=== PATIENT | female | born 1975 | race Caucasian/White ===

== ENCOUNTER 2018-03-30 19:18 | Emergency (ER) | payer SELFPAY ==
[2018-03-30] MEDS ORDERED: BUPIVACAINE 0.5% PF 10 ML VIAL ONE (20:17)
--- NOTE | 2018-03-30 21:27 | EDPHYS ---
Physician Documentation [facility] Name: Juliet Rodgers Age: 43 yrs Sex: Female : 1975 Arrival Date: 03/30/2018 Time: 19:32 Bed 13 Private MD: ED Physician Monroe Lake HPI: 03/30 20:12 This 43 yrs old Female presents to ER via Ambulatory with complaints of Toe jmm Injury. 20:12 The patient presents with an injury, pain, that is acute. Onset: The symptoms/episode jmm began/occurred acutely, just prior to arrival. Patient states a door pulled her left great toenail back just prior to arrival. . 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 - Social history:: Smoking status: Patient uses tobacco products, smokes one-half pack cigarettes per day. - Ebola Screening: : Patient negative for fever greater than or equal to 101.5 degrees Fahrenheit, and additional compatible Ebola Virus Disease symptoms Patient denies exposure to infectious person Patient denies travel to an Ebola-affected area in the 21 days before illness onset No symptoms or risks identified at this time. ROS: 20:12 Constitutional: Negative for fever, chills, and weight loss, Cardiovascular: Negative jmm for chest pain, palpitations, and edema, Respiratory: Negative for shortness of breath, cough, wheezing, and pleuritic chest pain. Exam: 03/31 02:36 Head/Face: atraumatic. jmm Constitutional: The patient appears in no acute distress, alert, awake. Cardiovascular: Rate: normal. Respiratory: the patient does not display signs of respiratory distress, Respirations: normal. Musculoskeletal/extremity: toenail avulsion noted to the left great toe. Skin: Appearance: Color: normal in color. Neuro: Orientation: is normal, Mentation: is normal, Memory: is normal. Psych: Behavior/mood is pleasant, cooperative. Vital Signs: 03/30 19:47 BP 127 / 89; Pulse 104; Resp 20; Temp 98.8; Pulse Ox 98% on R/A; Weight 54.43 kg; aj Height 5 ft. 4 in. (162.56 cm); 20:47 BP 137 / 84; Pulse 81; Resp 16; Pulse Ox 99% on R/A; bs1 21:15 BP 116 / 73; Pulse 86; Resp 16; Temp 98(O); Pulse Ox 100% on R/A; Pain 0/10; bs1 19:47 Body Mass Index 20.60 (54.43 kg, 162.56 cm) MDM: 20:10 Patient medically screened. [facility] 20:12 Data reviewed: vital signs, nurses notes. [facility] 20:12 Differential diagnosis: toenail avulsion. Special discussion: I have referred the [facility] patient to see his PCP for further evaluation of high blood pressure. ED course: No bony tenderness, I do not suspect fracture. Administered Medications: 20:28 Drug: Marcaine (0.5 %) 10 ml {Note: Administered by PA. Eligio} Volume: 10 ml; Route: bs1 Infiltration; Disposition: 03/31 06:35 Co-signature as Attending Physician, Monroe Lake MD I agree with the assessment and alfonzo plan of care. Disposition: 03/30/18 21:26 Discharged to Home. Impression: Unspecified open wound of left great toe with damage to nail. - Condition is Stable. - Discharge Instructions: Nail Bed Injury. - Medication Reconciliation Form, Thank You Letter, Antibiotic Education, Prescription Opioid Use form. - Follow up: Ar Butt MD; When: As needed; Reason: Recheck today's complaints. - Notes: please follow up with your primary care provider for further evaluation of your toe nail. please return to the ed if you develop fever, increased pain or any other concerning symptoms. Signatures: Latoya Dunn, Monroe Merida RN, MD MD cha Mickail, Joel, PA PA jmm Salazar, Brittany RN RN bs1 Corrections: (The following items were deleted from the chart) 03/30 21:37 21:26 03/30/2018 21:26 Discharged to Home. Impression: Unspecified open wound of left bs1 great toe with damage to nail. Condition is Stable. Forms are Medication Reconciliation Form, Thank You Letter, Antibiotic Education, Prescription Opioid Use. Follow up: Ar Filomena; When: As needed; Reason: Recheck today's complaints. thomas 03/31 02:37 02:36 Constitutional: The patient appears in no acute distress, alert, awake, thomas guzman
--- NOTE | 2018-03-30 21:27 | ER ---
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 Laceration to left great toe, reports nail lifted up. Transition of care: patient was not received from another setting of care. Onset of symptoms was March 30, 2018. Risk Assessment: Do you want to hurt yourself or someone else? Patient reports no desire to harm self or others. Care prior to arrival: None. 19:45 Method Of Arrival: Ambulatory aj 19:45 Acuity: ELI 4 aj 21:36 Initial Sepsis Screen: Does the patient meet any 2 criteria? No. Patient's initial bs1 sepsis screen is negative. Does the patient have a suspected source of infection? No. Patient's initial sepsis screen is negative. Triage Assessment: 19:47 General: Appears in no apparent distress. comfortable, Behavior is calm, cooperative, aj appropriate for age. Pain: Complains of pain in Left first toenail. Neuro: Level of Consciousness is awake, alert, obeys commands, Oriented to person, place, time, situation, Appropriate for age. Respiratory: Airway is patent Respiratory effort is even, unlabored, Respiratory pattern is regular, symmetrical. Derm: Skin is intact, is healthy with good turgor, Skin is pink, warm \T\ dry. normal. Injury Description: Laceration sustained to Left first toenail. 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 - Social history:: Smoking status: Patient uses tobacco products, smokes one-half pack cigarettes per day. - Ebola Screening: : Patient negative for fever greater than or equal to 101.5 degrees Fahrenheit, and additional compatible Ebola Virus Disease symptoms Patient denies exposure to infectious person Patient denies travel to an Ebola-affected area in the 21 days before illness onset No symptoms or risks identified at this time. Screenin:05 Abuse screen: Denies threats or abuse. Denies injuries from another. Nutritional bp screening: No deficits noted. Tuberculosis screening: No symptoms or risk factors identified. Fall Risk None identified. Assessment: 20:00 General: Appears in no apparent distress. comfortable, slender, Behavior is calm, rv cooperative, appropriate for age. Pain: Complains of pain in left first toe and Left first toenail. Neuro: Level of Consciousness is awake, alert, obeys commands, Oriented to person, place, time, situation, Appropriate for age. Cardiovascular: No deficits noted. Respiratory: Airway is patent Respiratory effort is even, unlabored, Respiratory pattern is regular, symmetrical. GI: No signs and/or symptoms were reported involving the gastrointestinal system. : No signs and/or symptoms were reported regarding the genitourinary system. EENT: No deficits noted. Derm: No deficits noted. Musculoskeletal: Circulation, motion, and sensation intact. Range of motion: intact in all extremities. Injury Description: Laceration sustained to left first toe and Left first toenail is not bleeding, NAIL AVULSION. 21:00 Reassessment: Patient appears in no apparent distress at this time. No changes from bs1 previously documented assessment. Patient is alert, oriented x 3, equal unlabored respirations, skin warm/dry/pink. 21:15 Reassessment: Dressed patients left big toe with Koban per verbal order from PA Patient bs1 denies pain at this time. Vital Signs: 19:47 BP 127 / 89; Pulse 104; Resp 20; Temp 98.8; Pulse Ox 98% on R/A; Weight 54.43 kg; aj Height 5 ft. 4 in. (162.56 cm); 20:47 BP 137 / 84; Pulse 81; Resp 16; Pulse Ox 99% on R/A; bs1 21:15 BP 116 / 73; Pulse 86; Resp 16; Temp 98(O); Pulse Ox 100% on R/A; Pain 0/10; bs1 19:47 Body Mass Index 20.60 (54.43 kg, 162.56 cm) aj ED Course: 19:32 Patient arrived in ED. es 19:47 Triage completed. aj 19:47 Arm band placed on left wrist. Patient placed in an exam room. aj 19:49 Eligio Espitia PA is PHCP. [facility] 19:49 Monroe Lake MD is Attending Physician. [facility] 20:05 Patient has correct armband on for positive identification. Bed in low position. Call bp light in reach. Adult w/ patient. 20:17 Elinor Calvillo, RN is Primary Nurse. bs1 21:21 Ar Butt MD is Referral Physician. jmm 21:36 No provider procedures requiring assistance completed. Patient did not have IV access bs1 during this emergency room visit. Administered Medications: 20:28 Drug: Marcaine (0.5 %) 10 ml {Note: Administered by BRAYDON Del Valle.} Volume: 10 ml; Route: bs1 Infiltration; Outcome: 21:26 Discharge ordered by . [facility] 21:36 Discharged to home ambulatory, with family. bs1 21:36 Condition: stable 21:36 Discharge instructions given to patient, Instructed on discharge instructions, follow up and referral plans. Demonstrated understanding of instructions, follow-up care. 21:37 Patient left the ED. bs1 Signatures: Latoya Dunn, RN RN Eligio Gr PA PA [facility] Marylin Fong Brian RN Elinor Graf, RN RN bs1 Roly Cage, RN RN rv
== END 2018-03-30 21:37 | disposition home or self-care (01) ==
LOC: ER 19:18
DX: S91.202A Unspecified open wound of left great toe with damage to nail, initial encounter (principal); W22.09XA Striking against other stationary object, initial encounter; Y93.89 Activity, other specified; Y92.009 Unspecified place in unspecified non-institutional (private) residence as the place of occurrence of the external cause; F17.210 Nicotine dependence, cigarettes, uncomplicated
CPT/HCPCS: 99283

== ENCOUNTER 2018-06-05 15:31 | Emergency (ER) | payer SELFPAY ==
--- NOTE | 2018-06-05 15:54 | ER ---
Nurse's Notes [facility] Name: Juliet Rodgers Age: 43 yrs Sex: Female : 1975 Arrival Date: 06/05/2018 Time: 15:34 Bed 11 Private MD: None, None Diagnosis: Unspecified otitis externa, left ear Presentation: 06/05 15:50 Presenting complaint: Patient states: "I can't hear out of my left ear and my right ear jl7 is starting to hurt. Transition of care: patient was not received from another setting of care. Risk Assessment: Do you want to hurt yourself or someone else? Patient reports no desire to harm self or others. Initial Sepsis Screen: Does the patient meet any 2 criteria? No. Patient's initial sepsis screen is negative. Does the patient have a suspected source of infection? No. Patient's initial sepsis screen is negative. Care prior to arrival: None. 15:50 Method Of Arrival: Ambulatory [facility] 15:50 Acuity: ELI 4 jl7 15:50 Onset of symptoms was June 05, 2018. iw 15:50 Onset of symptoms was June 05, 2018. iw Triage Assessment: 15:55 General: Appears in no apparent distress. Behavior is calm. 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 - Social history:: Smoking status: Patient uses tobacco products, smokes one-half pack cigarettes per day. - Ebola Screening: : No symptoms or risks identified at this time. Screenin:55 Abuse screen: Denies threats or abuse. Denies injuries from another. Nutritional iw screening: No deficits noted. Tuberculosis screening: No symptoms or risk factors identified. Fall Risk None identified. Assessment: 15:55 General: Appears in no apparent distress. Pain: Complains of pain in left ear and right iw ear. Neuro: Level of Consciousness is awake, alert, obeys commands, Oriented to person, place, time, situation, Moves all extremities. Full function. Cardiovascular: Patient's skin is warm and dry. Respiratory: Respiratory effort is even, unlabored, Respiratory pattern is regular, symmetrical. EENT: Reports pain. Derm: Skin is pink, warm \\T\\ dry. normal. Vital Signs: 15:53 BP 129 / 96; Pulse 99; Resp 16 S; Temp 98.5(O); Pulse Ox 100% on R/A; Pain 2/10; jl7 ED Course: 15:34 Patient arrived in ED. sb2 15:34 None, None is Private Physician. sb2 15:52 Triage completed. jl7 15:53 Mary [facility] Kerr [facility] kb 15:53 Monroe Lake MD is Attending Physician. kb 15:53 Arm band placed on right wrist. jl7 15:55 Patient has correct armband on for positive identification. iw 15:59 Seble Hloden, RN is Primary Nurse. iw 15:59 No provider procedures requiring assistance completed. Patient did not have IV access iw during this emergency room visit. Administered Medications: No medications were administered Outcome: 15:54 Discharge ordered by MD. kb 15:59 Discharged to home ambulatory. iw 15:59 Condition: good 15:59 Discharge instructions given to patient, Instructed on discharge instructions, follow up and referral plans. medication usage, Demonstrated understanding of instructions, follow-up care, medications, Prescriptions given X 1. 15:59 Patient left the ED. iw Signatures: Mary Jane Kerr FNP-C FNP-Ckb Williams, Irene, RN RN iw Brian Becerra RN RN jl7 Adriane Pinzon sb2
--- NOTE | 2018-06-05 15:55 | EDPHYS ---
Physician Documentation [facility] Name: Juliet Rodgers Age: 43 yrs Sex: Female : 1975 Arrival Date: 06/05/2018 Time: 15:34 Bed 11 Private MD: None, None ED Physician Monroe Lake HPI: 06/05 16:06 This 43 yrs old Female presents to ER via Ambulatory with complaints of Ear kb Pain. 16:06 The patient presents with hearing loss, partial, pain, mild. The complaints affect the kb right ear and left ear. Onset: The symptoms/episode began/occurred 2 month(s) ago. Modifying factors: The symptoms are alleviated by nothing, the symptoms are aggravated by nothing. Associated signs and symptoms: The patient has no apparent associated signs or symptoms. Severity of symptoms: At their worst the symptoms were moderate in the emergency department the symptoms are unchanged. The patient has not experienced similar symptoms in the past. The patient has not recently seen a physician. Pt reports hearing loss in left ear for 2 months and right ear is beginning to hurt. States she has taken a course of amoxicillin without relief. . 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 - Social history:: Smoking status: Patient uses tobacco products, smokes one-half pack cigarettes per day. - Ebola Screening: : No symptoms or risks identified at this time. ROS: 16:05 Constitutional: Negative for fever, chills, and weight loss, Cardiovascular: Negative kb for chest pain, palpitations, and edema, Respiratory: Negative for shortness of breath, cough, wheezing, and pleuritic chest pain, Abdomen/GI: Negative for abdominal pain, nausea, vomiting, diarrhea, and constipation, Back: Negative for injury and pain, : Negative for injury, bleeding, discharge, and swelling, MS/Extremity: Negative for injury and deformity, Skin: Negative for injury, rash, and discoloration, Neuro: Negative for headache, weakness, numbness, tingling, and seizure. 16:05 ENT: Positive for ear pain, hearing loss. Exam: 16:05 Constitutional: This is a well developed, well nourished patient who is awake, alert, kb and in no acute distress. Head/Face: Normocephalic, atraumatic. Chest/axilla: Normal chest wall appearance and motion. Nontender with no deformity. No lesions are appreciated. Cardiovascular: Regular rate and rhythm with a normal S1 and S2. No gallops, murmurs, or rubs. Normal PMI, no JVD. No pulse deficits. Respiratory: Lungs have equal breath sounds bilaterally, clear to auscultation and percussion. No rales, rhonchi or wheezes noted. No increased work of breathing, no retractions or nasal flaring. Abdomen/GI: Soft, non-tender, with normal bowel sounds. No distension or tympany. No guarding or rebound. No evidence of tenderness throughout. Skin: Warm, dry with normal turgor. Normal color with no rashes, no lesions, and no evidence of cellulitis. MS/ Extremity: Pulses equal, no cyanosis. Neurovascular intact. Full, normal range of motion. Neuro: Awake and alert, GCS 15, oriented to person, place, time, and situation. Cranial nerves II-XII grossly intact. Motor strength 5/5 in all extremities. Sensory grossly intact. Cerebellar exam normal. Normal gait. 16:05 ENT: External ear(s): are unremarkable, Ear canal(s): purulent discharge, that is moderate, in the left canal, swelling, that is minimal, that is moderate, of the left canal, TM's: fluid levels, on the right, not visable, because of discharge, left ear, Nose: is normal, Mouth: is normal. Vital Signs: 15:53 BP 129 / 96; Pulse 99; Resp 16 S; Temp 98.5(O); Pulse Ox 100% on R/A; Pain 2/10; jl7 MDM: 15:53 Patient medically screened. kb 16:05 Data reviewed: vital signs, nurses notes. Data interpreted: Pulse oximetry: on room air kb is 100 %. Interpretation: normal. Counseling: I had a detailed discussion with the patient and/or guardian regarding: the historical points, exam findings, and any diagnostic results supporting the discharge/admit diagnosis, the need for outpatient follow up, an ENT specialist, to return to the emergency department if symptoms worsen or persist or if there are any questions or concerns that arise at home. Administered Medications: No medications were administered Disposition: 06/06 11:34 Co-signature as Attending Physician, Monroe Laek MD I agree with the assessment and alfonzo plan of care. Disposition: 06/05/18 15:54 Discharged to Home. Impression: Unspecified otitis externa, left ear. - Condition is Stable. - Discharge Instructions: Otitis Externa, [id number], Ear Drops, Adult, [id number]. - Prescriptions for Cortisporin 3.5- 10,000-1 mg/mL-unit/mL-% Otic solution - instill 4 drop by OTIC route every 6 hours for 10 days; 1 bottle. - Medication Reconciliation Form, Thank You Letter, Antibiotic Education, Prescription Opioid Use form. - Follow up: Private Physician; When: 2 - 3 days; Reason: Recheck today's complaints, Continuance of care, Re-evaluation by your physician. Follow up: Emergency Department; When: As needed; Reason: Worsening of condition. Signatures: Mary Jane Kerr, SUPERVISOR MACHINE SETTER-C LEON-Monroe Hale MD MD cha Williams, Irene, RN RN iw Brian Becerra RN RN jl7 Corrections: (The following items were deleted from the chart) 06/05 15:59 15:54 06/05/2018 15:54 Discharged to Home. Impression: Unspecified otitis externa, left iw ear. Condition is Stable. Forms are Medication Reconciliation Form, Thank You Letter, Antibiotic Education, Prescription Opioid Use. Follow up: Private Physician; When: 2 - 3 days; Reason: Recheck today's complaints, Continuance of care, Re-evaluation by your physician. Follow up: Emergency Department; When: As needed; Reason: Worsening of condition. kb
== END 2018-06-05 15:59 | disposition home or self-care (01) ==
LOC: ER 15:31
DX: H60.92 Unspecified otitis externa, left ear (principal); F17.210 Nicotine dependence, cigarettes, uncomplicated
CPT/HCPCS: 99282

== ENCOUNTER 2018-07-28 09:58 | Emergency (ER) | payer SELFPAY ==
--- NOTE | 2018-07-28 10:30 | ER ---
Nurse's Notes [facility] Name: Juliet Rodgers Age: 43 yrs Sex: Female : 1975 Arrival Date: 07/28/2018 Time: 10:03 Bed 11 Private MD: Diagnosis: Acute serous otitis media Presentation: 07/28 10:08 Presenting complaint: Patient states: She was seen here 2 weeks ago for an infection in aj1 her ear, she used the ear drops and it got better but now its back again. Reports that she can't hear out of her right ear. Transition of care: patient was not received from another setting of care. Onset of symptoms was May 2018. Risk Assessment: Do you want to hurt yourself or someone else? Patient reports no desire to harm self or others. Initial Sepsis Screen: Does the patient meet any 2 criteria? HR > 90 bpm. Does the patient have a suspected source of infection? No. Patient's initial sepsis screen is negative. Care prior to arrival: None. 10:08 Method Of Arrival: Ambulatory [facility] 10:08 Acuity: ELI 4 aj1 Triage Assessment: 10:09 General: Appears in no apparent distress. comfortable, Behavior is calm, cooperative, aj1 appropriate for age. Pain: Denies pain. EENT: Reports trouble hearing in her right ear. Neuro: Level of Consciousness is awake, alert, obeys commands. Cardiovascular: Patient's skin is warm and dry. Respiratory: Airway is patent Respiratory effort is even, unlabored, Respiratory pattern is regular, symmetrical. 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 - Social history:: Smoking status: Patient uses tobacco products, smokes one-half pack cigarettes per day. - Ebola Screening: : Patient denies travel to an Ebola-affected area in the 21 days before illness onset. Screenin:11 Abuse screen: Denies threats or abuse. Denies injuries from another. Nutritional hb screening: No deficits noted. Tuberculosis screening: No symptoms or risk factors identified. Fall Risk None identified. Assessment: 10:15 General: Appears in no apparent distress. Behavior is calm, cooperative. Pain: Pain hb currently is 0 out of 10 on a pain scale. Neuro: Level of Consciousness is awake, alert, obeys commands, Oriented to person, place, time, situation. Cardiovascular: Capillary refill < 3 seconds. Respiratory: Airway is patent Trachea midline Respiratory effort is even, unlabored, Respiratory pattern is regular, symmetrical. GI: No signs and/or symptoms were reported involving the gastrointestinal system. : No signs and/or symptoms were reported regarding the genitourinary system. EENT: Reports decreased hearing in right ear. Derm: Skin is pink, warm \T\ dry. Musculoskeletal: No signs and/or symptoms reported regarding the musculoskeletal system. Vital Signs: 10:09 BP 135 / 93; Pulse 92; Resp 18; Temp 98.0(TE); Pulse Ox 99% on R/A; Weight 58.97 kg aj1 (R); Height 5 ft. 4 in. (162.56 cm) (R); Pain 0/10; 10:09 Body Mass Index 22.31 (58.97 kg, 162.56 cm) [facility] ED Course: 10:03 Patient arrived in ED. as 10:09 Triage completed. aj1 10:09 Arm band placed on Patient placed in an exam room. aj1 10:11 Eligio Espitia PA is PHCP. [facility] 10:11 Cristian Knowles MD is Attending Physician. [facility] 10:11 Iris Rolon, JODY is Primary Nurse. hb 10:15 Patient has correct armband on for positive identification. Call light in reach. hb 10:29 Ynes Weston MD is Referral Physician. [facility] 10:42 No provider procedures requiring assistance completed. Patient did not have IV access hb during this emergency room visit. Administered Medications: No medications were administered Outcome: 10:29 Discharge ordered by . [facility] 10:42 Discharged to home ambulatory. hb 10:42 Condition: stable 10:42 Discharge instructions given to patient, Instructed on discharge instructions, follow up and referral plans. medication usage, Demonstrated understanding of instructions, follow-up care, medications, Prescriptions given X 2. 10:43 Patient left the ED. hb Signatures: Carmelita Lester RN RN aj Eligio Espitia PA PA jmm Martinez, Amelia as Iris Rolon RN RN
--- NOTE | 2018-07-28 10:30 | EDPHYS ---
Physician Documentation [facility] Name: Juliet Rodgers Age: 43 yrs Sex: Female : 1975 Arrival Date: 07/28/2018 Time: 10:03 Bed 11 Private MD: ED Physician Cristian Knowles HPI: 07/28 10:25 This 43 yrs old Female presents to ER via Ambulatory with complaints of Ear jmm Pain. 10:25 The patient presents with pain, that is chronic. Onset: The symptoms/episode jmm began/occurred gradually, 2 week(s) ago. Modifying factors: The symptoms are alleviated by nothing, the symptoms are aggravated by nothing. Associated signs and symptoms: Pertinent negatives: cough, fever, vomiting. Patient complains of ongoing bilaterally ear pain more so on the right for the past 6 months. Patient states she was diagnosed with an external ear infection with relief with topical antibiotics. Patient states symptoms returned 2 weeks ago. . 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 - Social history:: Smoking status: Patient uses tobacco products, smokes one-half pack cigarettes per day. - Ebola Screening: : Patient denies travel to an Ebola-affected area in the 21 days before illness onset. ROS: 10:25 Constitutional: Negative for fever, chills, and weight loss. jmm 10:25 Cardiovascular: Negative for chest pain, palpitations, and edema, Respiratory: Negative for shortness of breath, cough, wheezing, and pleuritic chest pain, MS/Extremity: Negative for injury and deformity, Skin: Negative for injury, rash, and discoloration, Neuro: Negative for headache, weakness, numbness, tingling, and seizure. 10:25 ENT: Positive for ear pain. 10:25 All other systems are negative. Exam: 10:25 Head/Face: atraumatic. jmm 10:25 Neck: Trachea midline, Supple Chest/axilla: Normal chest wall appearance and motion. Cardiovascular: Regular rate and rhythm. No edema appreciated Respiratory: Normal respirations, no respiratory distress appreciated Abdomen/GI: Non distended, soft Back: Normal ROM Skin: General appearance color normal MS/ Extremity: Moves all extremities, no obvious deformities appreciated, no edema noted to the lower extremities Neuro: Awake and alert, normal gait Psych: Behavior is normal, Mood is normal, Patient is cooperative and pleasant 10:25 Constitutional: The patient appears in no acute distress, alert, awake. 10:25 ENT: Ear canal(s): are normal, TM's: erythema, that is moderate, on the right. Vital Signs: 10:09 BP 135 / 93; Pulse 92; Resp 18; Temp 98.0(TE); Pulse Ox 99% on R/A; Weight 58.97 kg aj1 (R); Height 5 ft. 4 in. (162.56 cm) (R); Pain 0/10; 10:09 Body Mass Index 22.31 (58.97 kg, 162.56 cm) aj1 MDM: 10:25 Patient medically screened. [facility] 10:25 Data reviewed: vital signs, nurses notes. Counseling: I had a detailed discussion with [facility] the patient and/or guardian regarding: the historical points, exam findings, and any diagnostic results supporting the discharge/admit diagnosis, the need for outpatient follow up, to return to the emergency department if symptoms worsen or persist or if there are any questions or concerns that arise at home. 10:25 Counseling: I had a detailed discussion with the patient and/or guardian regarding: the [facility] presence of at least one elevated blood pressure reading (>120/80) during this emergency department visit. Administered Medications: No medications were administered Disposition: 11:04 Co-signature as Attending Physician, Cristian Knowles MD. rn Disposition: 07/28/18 10:29 Discharged to Home. Impression: Acute serous otitis media. - Condition is Stable. - Discharge Instructions: Otitis Media, Adult. - Prescriptions for Augmentin 875- 125 mg Oral Tablet - take 1 tablet by ORAL route every 12 hours for 10 days; 20 tablet. Fluconazole 150 mg Oral Tablet - take 1 tablet by ORAL route once daily; 1 tablet. - Medication Reconciliation Form, Thank You Letter, Antibiotic Education, Prescription Opioid Use form. - Follow up: Ynes Weston MD; When: 2 - 3 days; Reason: Recheck today's complaints, Continuance of care, Re-evaluation by your physician. Signatures: Carmelita Lester RN RN aj1 Eligio Espitia PA PA jmm Nieto, Roman, MD MD rn Baxter, Heather, RN RN hb Corrections: (The following items were deleted from the chart) 10:43 10:29 07/28/2018 10:29 Discharged to Home. Impression: Acute serous otitis media. hb Condition is Stable. Forms are Medication Reconciliation Form, Thank You Letter, Antibiotic Education, Prescription Opioid Use. Follow up: Ynes Weston; When: 2 - 3 days; Reason: Recheck today's complaints, Continuance of care, Re-evaluation by your physician. thomas
== END 2018-07-28 10:43 | disposition home or self-care (01) ==
LOC: ER 09:58
DX: H65.00 Acute serous otitis media, unspecified ear (principal); F17.210 Nicotine dependence, cigarettes, uncomplicated
CPT/HCPCS: 99282

== ENCOUNTER 2018-08-09 10:49 | Emergency (ER) | payer SELFPAY ==
--- NOTE | 2018-08-09 11:27 | ER ---
Nurse's Notes [facility] Name: Juliet Rodgers Age: 43 yrs Sex: Female : 1975 Arrival Date: 08/09/2018 Time: 10:52 Bed 5 Private MD: None, None Diagnosis: Otitis media, unspecified, right ear Presentation: 08/09 11:05 Presenting complaint: Patient states: Congestion to bilateral ears for 2 months. Seen aj in this ER twice for same complaint. Has not followed up. Transition of care: patient was not received from another setting of care. Onset of symptoms was June 10, 2018. Risk Assessment: Do you want to hurt yourself or someone else? Patient reports no desire to harm self or others. Initial Sepsis Screen: Does the patient meet any 2 criteria? No. Patient's initial sepsis screen is negative. Does the patient have a suspected source of infection? No. Patient's initial sepsis screen is negative. Care prior to arrival: None. 11:05 Method Of Arrival: Ambulatory aj 11:05 Acuity: ELI 4 aj Triage Assessment: 11:07 General: Appears in no apparent distress. comfortable, Behavior is calm, cooperative, aj appropriate for age. Pain: Complains of pain in right ear and left ear. EENT: Reports ear congestion. Neuro: Level of Consciousness is awake, alert, obeys commands, Oriented to person, place, time, situation, Appropriate for age. Respiratory: Airway is patent Respiratory effort is even, unlabored, Respiratory pattern is regular, symmetrical. Derm: Skin is intact, is healthy with good turgor, Skin is pink, warm \T\ dry. normal. 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 - Social history:: Smoking status: Patient uses tobacco products, smokes one pack cigarettes per day. - Ebola Screening: : Patient negative for fever greater than or equal to 101.5 degrees Fahrenheit, and additional compatible Ebola Virus Disease symptoms Patient denies exposure to infectious person Patient denies travel to an Ebola-affected area in the 21 days before illness onset No symptoms or risks identified at this time. Screenin:31 Abuse screen: Denies threats or abuse. Denies injuries from another. Nutritional jl7 screening: No deficits noted. Tuberculosis screening: No symptoms or risk factors identified. Fall Risk None identified. Assessment: 11:31 General: Appears in no apparent distress. uncomfortable, Behavior is calm, cooperative, jl7 appropriate for age. Pain: Denies pain. Neuro: Level of Consciousness is awake, alert, obeys commands, Oriented to person, place, time, situation. Cardiovascular: Patient's skin is warm and dry. Respiratory: Airway is patent Respiratory effort is even, unlabored, Respiratory pattern is regular, symmetrical. EENT: purulent drainage noted at right ear. Derm: Skin is pink, warm \T\ dry. 11:44 Reassessment: PT D/C HOME AMBULATORY, DX WITH OTITIS MEDIA. bp Vital Signs: 11:07 BP 122 / 77; Pulse 93; Resp 18; Temp 97.7; Pulse Ox 100% on R/A; Weight 77.11 kg; aj Height 5 ft. 4 in. (162.56 cm); 11:40 BP 122 / 89; Pulse 87; Resp 16; Pulse Ox 100% ; bp 11:07 Body Mass Index 29.18 (77.11 kg, 162.56 cm) aj ED Course: 10:52 Patient arrived in ED. mr 10:53 None, None is Private Physician. mr 11:06 Triage completed. aj 11:07 Arm band placed on right wrist. Patient placed in an exam room. aj 11:09 Eulogio Harding, CHELSI is PHCP. pm1 11:09 Cristian Knowles MD is Attending Physician. pm1 11:11 Brian Becerra, JODY is Primary Nurse. jl7 11:26 Ynes Weston MD is Referral Physician. pm1 11:31 Patient has correct armband on for positive identification. Bed in low position. Call jl7 light in reach. Side rails up X 1. Pulse ox on. NIBP on. 11:31 No provider procedures requiring assistance completed. Patient did not have IV access jl7 during this emergency room visit. Administered Medications: 11:30 Drug: SOLU-Medrol 125 mg Route: IM; Site: right gluteus; jl7 11:39 Follow up: Response: No adverse reaction bp Outcome: 11:27 Discharge ordered by . pm1 11:45 Discharged to home ambulatory. bp 11:45 Condition: stable 11:45 Discharge instructions given to patient, Instructed on discharge instructions, follow up and referral plans. medication usage, Demonstrated understanding of instructions, follow-up care, medications, Prescriptions given X 3. 11:45 Patient left the ED. bp Signatures: Latoya Dunn RN RN Nighat Yusuf mr Eulogio Harding, CHELSI CASING MAN pm1 Brian Becerra RN RN jl7 Jim Encinas RN RN bp
--- NOTE | 2018-08-09 11:27 | EDPHYS ---
Physician Documentation [facility] Name: Juliet Rodgers Age: 43 yrs Sex: Female : 1975 Arrival Date: 08/09/2018 Time: 10:52 Bed 5 Private MD: None, None ED Physician Cristian Knowles HPI: 08/09 11:22 This 43 yrs old Female presents to ER via Ambulatory with complaints of Right pm1 Ear Pain. 11:22 The patient presents with pain, Decreased hearing to right ear. The complaints affect pm1 the right ear. Onset: The symptoms/episode began/occurred 2 week(s) ago. Modifying factors: The symptoms are alleviated by nothing, the symptoms are aggravated by nothing. Associated signs and symptoms: Pertinent positives: sinus trouble, Pertinent negatives: fever, nausea, rhinorrhea, sore throat, tinnitus, vomiting. Severity of symptoms: in the emergency department the symptoms are worse. The patient has experienced similar episodes in the past, a few times. 11:22 Patient seen here on 06/05 and 07/28 for the same complaint. Resolution of symptoms pm1 after treatment on 06/05 but symptoms came back about 3 weeks ago. Presented on 07/28 and was diagnosed with otitis media and prescribed Augmentin. Patient completed antibiotics and reports no improvement in symptoms. 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 - Social history:: Smoking status: Patient uses tobacco products, smokes one pack cigarettes per day. - Ebola Screening: : Patient negative for fever greater than or equal to 101.5 degrees Fahrenheit, and additional compatible Ebola Virus Disease symptoms Patient denies exposure to infectious person Patient denies travel to an Ebola-affected area in the 21 days before illness onset No symptoms or risks identified at this time. ROS: 11:22 Constitutional: Negative for fever, chills, and weight loss, Eyes: Negative for injury, pm1 pain, redness, and discharge. 11:22 Neck: Negative for injury, pain, and swelling, Cardiovascular: Negative for chest pain, palpitations, and edema, Respiratory: Negative for shortness of breath, cough, wheezing, and pleuritic chest pain, Abdomen/GI: Negative for abdominal pain, nausea, vomiting, diarrhea, and constipation, Back: Negative for injury and pain, MS/Extremity: Negative for injury and deformity, Skin: Negative for injury, rash, and discoloration, Neuro: Negative for headache, weakness, numbness, tingling, and seizure. 11:22 ENT: Positive for ear pain, sinus congestion, muffled hearing on right side, Negative for drainage from ear(s), sore throat, dental pain, difficulty swallowing, difficulty handling secretions, hoarseness. Exam: 11:22 Constitutional: This is a well developed, well nourished patient who is awake, alert, pm1 and in no acute distress. Head/Face: Normocephalic, atraumatic. Eyes: Pupils equal round and reactive to light, extra-ocular motions intact. Lids and lashes normal. Conjunctiva and sclera are non-icteric and not injected. Cornea within normal limits. Periorbital areas with no swelling, redness, or edema. 11:22 Neck: Trachea midline, no thyromegaly or masses palpated, and no cervical lymphadenopathy. Supple, full range of motion without nuchal rigidity, or vertebral point tenderness. No Meningismus. Chest/axilla: Normal chest wall appearance and motion. Nontender with no deformity. No lesions are appreciated. Cardiovascular: Regular rate and rhythm with a normal S1 and S2. No gallops, murmurs, or rubs. Normal PMI, no JVD. No pulse deficits. Respiratory: Lungs have equal breath sounds bilaterally, clear to auscultation and percussion. No rales, rhonchi or wheezes noted. No increased work of breathing, no retractions or nasal flaring. Back: No spinal tenderness. No costovertebral tenderness. Full range of motion. Skin: Warm, dry with normal turgor. Normal color with no rashes, no lesions, and no evidence of cellulitis. MS/ Extremity: Pulses equal, no cyanosis. Neurovascular intact. Full, normal range of motion. 11:22 ENT: External ear(s): are unremarkable, Ear canal(s): are normal, TM's: bulging, on the right, erythema, on the right, Examination of the other ear shows no obvious abnormality, Nose: is normal, Mouth: is normal, Posterior pharynx: is normal. 11:22 Neuro: Orientation: is normal, Motor: is normal, moves all fours, Gait: is steady, at a normal pace, without difficulty. Vital Signs: 11:07 BP 122 / 77; Pulse 93; Resp 18; Temp 97.7; Pulse Ox 100% on R/A; Weight 77.11 kg; aj Height 5 ft. 4 in. (162.56 cm); 11:40 BP 122 / 89; Pulse 87; Resp 16; Pulse Ox 100% ; bp 11:07 Body Mass Index 29.18 (77.11 kg, 162.56 cm) aj MDM: 11:09 Patient medically screened. pm1 11:26 Data reviewed: vital signs. Data interpreted: Pulse oximetry: on room air is 100 %. pm1 Interpretation: normal. Counseling: I had a detailed discussion with the patient and/or guardian regarding: the historical points, exam findings, and any diagnostic results supporting the discharge/admit diagnosis, the need for outpatient follow up, for definitive care, an ENT specialist, to return to the emergency department if symptoms worsen or persist or if there are any questions or concerns that arise at home. Administered Medications: 11:30 Drug: SOLU-Medrol 125 mg Route: IM; Site: right gluteus; jl7 11:39 Follow up: Response: No adverse reaction bp Disposition: 14:35 Co-signature as Attending Physician, Cristian Knowles MD. rn Disposition: 08/09/18 11:27 Discharged to Home. Impression: Otitis media, unspecified, right ear. - Condition is Stable. - Discharge Instructions: Otitis Media, Adult. - Prescriptions for Zyrtec- D 5-120 mg Oral Tablet Sustained Release 12 hr - take 1 tablet by ORAL route every 12 hours As needed; 20 tablet. Medrol (Mauricio) 4 mg Oral Tablets, Dose Pack - take 1 tablet by ORAL route as directed - follow package instructions; 1 packet. cefdinir 300 mg Oral capsule - take 1 capsule by ORAL route every 12 hours for 10 days; 20 capsule. - Medication Reconciliation Form, Thank You Letter, Antibiotic Education form. - Follow up: Emergency Department; When: As needed; Reason: Worsening of condition. Follow up: Ynes Weston MD; When: 2 - 3 days; Reason: Recheck today's complaints, Continuance of care, Re-evaluation by your physician. - Problem is new. - Symptoms have improved. Signatures: Latoya Dunn RN RN Cristian Zavala MD MD rn Marinas, Patrick, CHELSI PASSENGER SERVICE REPRESENTATIVE pm1 Brian Becerra RN RN jl7 Jim Encinas RN RN bp Corrections: (The following items were deleted from the chart) 11:45 11:27 08/09/2018 11:27 Discharged to Home. Impression: Otitis media, unspecified, right bp ear. Condition is Stable. Forms are Medication Reconciliation Form, Thank You Letter, Antibiotic Education, Prescription Opioid Use. Follow up: Emergency Department; When: As needed; Reason: Worsening of condition. Follow up: Ynes Weston; When: 2 - 3 days; Reason: Recheck today's complaints, Continuance of care, Re-evaluation by your physician. Problem is new. Symptoms have improved. pm1
[2018-08-09] MEDS ORDERED: METHYLPREDNISOLONE 125 MG INJ ONE (11:33)
== END 2018-08-09 11:45 | disposition home or self-care (01) ==
LOC: ER 10:49
DX: H66.91 Otitis media, unspecified, right ear (principal); F17.210 Nicotine dependence, cigarettes, uncomplicated
CPT/HCPCS: 96372; 99283; J2930

== ENCOUNTER 2018-09-01 07:32 | Emergency (ER) | payer SELFPAY ==
--- NOTE | 2018-09-01 08:07 | ER ---
Nurse's Notes [facility] Name: Juliet Rodgers Age: 43 yrs Sex: Female : 1975 Arrival Date: 09/01/2018 Time: 07:35 Bed 19 Private MD: None, None Diagnosis: Acute suppurative otitis media;Acute contact otitis externa, right ear Presentation: 09/01 07:49 Presenting complaint: Patient states: intermittent R ear pain that began 4 months ago. ss Pt reports being seen approx 4 times in ER for the same complaint, but reports that symptoms keep coming back. Denies fever. Reports R ear pain is 1/10 that began this am. Transition of care: patient was not received from another setting of care. Onset of symptoms was September 01, 2018. Risk Assessment: Do you want to hurt yourself or someone else? Patient reports no desire to harm self or others. Initial Sepsis Screen: Does the patient meet any 2 criteria? No. Patient's initial sepsis screen is negative. Does the patient have a suspected source of infection? No. Patient's initial sepsis screen is negative. Note Pt was told to follow up with ENT, but reports she has been unable to as she does not have insurance. Care prior to arrival: None. 07:49 Method Of Arrival: Ambulatory ss 07:49 Acuity: ELI 5 ss Historical: - Allergies: 07:52 No Known Allergies; ss - Immunization history:: Adult Immunizations up to date. - Social history:: Smoking status: Patient uses tobacco products, smokes one pack cigarettes per day. - Ebola Screening: : Patient denies exposure to infectious person Patient denies travel to an Ebola-affected area in the 21 days before illness onset. Screenin:20 Abuse screen: Denies threats or abuse. Nutritional screening: No deficits noted. em Tuberculosis screening: No symptoms or risk factors identified. Fall Risk None identified. Assessment: 08:15 General: Appears in no apparent distress. uncomfortable, Behavior is calm, cooperative. em Pain: Complains of pain in right ear. Neuro: Level of Consciousness is awake, alert, obeys commands, Oriented to person, place, time, situation. Cardiovascular: Capillary refill < 3 seconds Patient's skin is warm and dry. Respiratory: Airway is patent Respiratory effort is even, unlabored, Respiratory pattern is regular, symmetrical. GI: Abdomen is flat. : No signs and/or symptoms were reported regarding the genitourinary system. EENT: Ear canal w/ drainage noted from right ear canal. Derm: Skin is intact, Skin is pink, warm \T\ dry. Musculoskeletal: Capillary refill < 3 seconds, Range of motion: intact in all extremities. 08:30 General: The previous assessment is accurate, call light remains within reach. . Vital Signs: 07:52 BP 139 / 96; Pulse 111; Resp 16; Temp 97.7(TE); Pulse Ox 98% ; Weight 58.97 kg; Height ss 5 ft. 4 in. (162.56 cm); Pain /10; 07:52 Body Mass Index 22.31 (58.97 kg, 162.56 cm) ED Course: 07:35 Patient arrived in ED. mr 07:35 None, None is Private Physician. mr 07:43 Tito Beltran PA is PHCP. jr8 07:43 [place] MD is Attending Physician. jr8 07:49 Francisco Kirk LVN is Primary Nurse. em 07:51 Triage completed. ss 07:52 Arm band placed on right wrist. ss 08:06 Ynes Weston MD is Referral Physician. jr8 08:20 Patient has correct armband on for positive identification. em 08:20 No provider procedures requiring assistance completed. Patient did not have IV access em during this emergency room visit. Administered Medications: No medications were administered Outcome: 08:06 Discharge ordered by . jr8 08:22 Discharged to home ambulatory. em 08:22 Condition: good 08:22 Discharge instructions given to patient, Instructed on discharge instructions, follow up and referral plans. medication usage, Demonstrated understanding of instructions, follow-up care, medications, Prescriptions given X 2. 08:23 Patient left the ED. em Signatures: Nighat Tyler mr Francisco Kirk LVN LVN em Janette Hollis RN RN Tito Beltran PA PA jr8
--- NOTE | 2018-09-01 08:07 | EDPHYS ---
Physician Documentation [facility] Name: Juliet Rodgers Age: 43 yrs Sex: Female : 1975 Arrival Date: 09/01/2018 Time: 07:35 Bed 19 Private MD: None, None ED Physician Monroe Lake HPI: 09/01 08:15 This 43 yrs old Female presents to ER via Ambulatory with complaints of Ear jr8 Pain. 08:15 The patient presents with pain. The complaints affect the right ear. Onset: The jr8 symptoms/episode began/occurred acutely, yesterday. Modifying factors: The symptoms are alleviated by nothing, the symptoms are aggravated by pulling on ears, touching. Associated signs and symptoms: The patient has no apparent associated signs or symptoms. Severity of symptoms: At their worst the symptoms were moderate in the emergency department the symptoms are unchanged. The patient has experienced similar episodes in the past, several times. The patient has not recently seen a physician. Stated that she has been battling ear infections on/off for the past 4 months or so. Started with another one yesterday. Has not been able to see ENT due to insurance yet . Historical: - Allergies: 07:52 No Known Allergies; ss - Immunization history:: Adult Immunizations up to date. - Social history:: Smoking status: Patient uses tobacco products, smokes one pack cigarettes per day. - Ebola Screening: : Patient denies exposure to infectious person Patient denies travel to an Ebola-affected area in the 21 days before illness onset. ROS: 08:15 Constitutional: Negative for fever, chills, and weight loss, Eyes: Negative for injury, jr8 pain, redness, and discharge, Neck: Negative for injury, pain, and swelling, Cardiovascular: Negative for chest pain, palpitations, and edema, Respiratory: Negative for shortness of breath, cough, wheezing, and pleuritic chest pain, Abdomen/GI: Negative for abdominal pain, nausea, vomiting, diarrhea, and constipation, Back: Negative for injury and pain, MS/Extremity: Negative for injury and deformity, Skin: Negative for injury, rash, and discoloration, Neuro: Negative for headache, weakness, numbness, tingling, and seizure. 08:15 ENT: Positive for drainage from ear(s), ear pain. Exam: 08:15 Head/Face: Normocephalic, atraumatic. Eyes: Pupils equal round and reactive to light, jr8 extra-ocular motions intact. Lids and lashes normal. Conjunctiva and sclera are non-icteric and not injected. Cornea within normal limits. Periorbital areas with no swelling, redness, or edema. Neck: Trachea midline, no thyromegaly or masses palpated, and no cervical lymphadenopathy. Supple, full range of motion without nuchal rigidity, or vertebral point tenderness. No Meningismus. Cardiovascular: Regular rate and rhythm with a normal S1 and S2. No gallops, murmurs, or rubs. Normal PMI, no JVD. No pulse deficits. Respiratory: Lungs have equal breath sounds bilaterally, clear to auscultation and percussion. No rales, rhonchi or wheezes noted. No increased work of breathing, no retractions or nasal flaring. Abdomen/GI: Soft, non-tender, with normal bowel sounds. No distension or tympany. No guarding or rebound. No evidence of tenderness throughout. Back: No spinal tenderness. No costovertebral tenderness. Full range of motion. Skin: Warm, dry with normal turgor. Normal color with no rashes, no lesions, and no evidence of cellulitis. MS/ Extremity: Pulses equal, no cyanosis. Neurovascular intact. Full, normal range of motion. Neuro: Awake and alert, GCS 15, oriented to person, place, time, and situation. Cranial nerves II-XII grossly intact. Motor strength 5/5 in all extremities. Sensory grossly intact. Cerebellar exam normal. Normal gait. 08:15 ENT: External ear(s): pain with movement, that is mild, of the pinna of right ear and right ear canal, Ear canal(s): purulent discharge, that is moderate, in the right canal, green/yellow in appearance , TM's: dullness, on the right, erythema, on the right, Nose: is normal, Mouth: is normal, Posterior pharynx: is normal. Vital Signs: 07:52 BP 139 / 96; Pulse 111; Resp 16; Temp 97.7(TE); Pulse Ox 98% ; Weight 58.97 kg; Height ss 5 ft. 4 in. (162.56 cm); Pain 1/10; 07:52 Body Mass Index 22.31 (58.97 kg, 162.56 cm) ss MDM: 07:48 Patient medically screened. [facility] 08:05 Data reviewed: vital signs, nurses notes, lab test result(s). Data interpreted: Pulse jr8 oximetry: on room air is 98 %. Interpretation: normal. Counseling: I had a detailed discussion with the patient and/or guardian regarding: the historical points, exam findings, and any diagnostic results supporting the discharge/admit diagnosis, the need for outpatient follow up, an ENT specialist, to return to the emergency department if symptoms worsen or persist or if there are any questions or concerns that arise at home. 09/01 08:05 Order name: Wound Culture jr8 Administered Medications: No medications were administered Disposition: 12:20 Co-signature as Attending Physician, Monroe Lake MD I agree with the assessment and [facility] plan of care. Disposition: 09/01/18 08:06 Discharged to Home. Impression: Acute suppurative otitis media, Acute contact otitis externa, right ear. - Condition is Stable. - Discharge Instructions: Ear Drops, Adult, Otitis Media, Adult, Otitis Externa. - Prescriptions for Cipro 500 mg Oral Tablet - take 1 tablet by ORAL route every 12 hours for 7 days; 14 tablet. Ciprodex 0.3- 0.1 % Otic Drops, Suspension - instill 4 drop by OTIC route every 12 hours for 7 days , for ears ONLY; 1 Container. - Medication Reconciliation Form, Thank You Letter, Antibiotic Education, Prescription Opioid Use form. - Follow up: Ynes Weston MD; When: 2 - 3 days; Reason: Recheck today's complaints, Continuance of care, Re-evaluation by your physician. - Problem is new. - Symptoms have improved. Signatures: Dispatcher [employer] Monroe Vaughn MD MD cha Munoz, Edgar, HIV NURSE HIV NURSE em Janette Hollis RN RN Tito Pal PA PA jr8 Corrections: (The following items were deleted from the chart) 08:23 08:06 09/01/2018 08:06 Discharged to Home. Impression: Acute suppurative otitis media; em Acute contact otitis externa, right ear. Condition is Stable. Forms are Medication Reconciliation Form, Thank You Letter, Antibiotic Education, Prescription Opioid Use. Follow up: Ynes Weston; When: 2 - 3 days; Reason: Recheck today's complaints, Continuance of care, Re-evaluation by your physician. Problem is new. Symptoms have improved. jr8
== END 2018-09-01 08:23 | disposition home or self-care (01) ==
LOC: ER 07:32
DX: H66.009 Acute suppurative otitis media without spontaneous rupture of ear drum, unspecified ear (principal); H60.531 Acute contact otitis externa, right ear; F17.210 Nicotine dependence, cigarettes, uncomplicated
CPT/HCPCS: 87070; 87077; 87186; 87205; 99282

== ENCOUNTER 2018-09-12 09:38 | Emergency (ER) | payer SELFPAY ==
--- NOTE | 2018-09-12 10:48 | ER ---
Nurse's Notes [facility] Name: Juliet Rodgers Age: 43 yrs Sex: Female : 1975 Arrival Date: 09/12/2018 Time: 09:41 Bed 24 Private MD: None, None Diagnosis: Unspecified chronic otitis externa, bilateral Presentation: 09/12 10:11 Presenting complaint: Patient states: Bilateral Ear pain x 4 months, medications are jl7 not helping, a culture was done but I never got a call about the results. The right ear feels like it's closing up now, I can barely hear. Transition of care: patient was not received from another setting of care. Onset of symptoms was May 2018. Risk Assessment: Do you want to hurt yourself or someone else? Patient reports no desire to harm self or others. Initial Sepsis Screen: Does the patient meet any 2 criteria? No. Patient's initial sepsis screen is negative. Does the patient have a suspected source of infection? No. Patient's initial sepsis screen is negative. Care prior to arrival: None. 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 - Social history:: Smoking status: Patient uses tobacco products, smokes one pack cigarettes per day. - Ebola Screening: : No symptoms or risks identified at this time. - Family history:: not pertinent, pertinent for. - Hospitalizations: : No recent hospitalization is reported. Screenin:19 Abuse screen: Denies threats or abuse. Denies injuries from another. Nutritional aj screening: No deficits noted. Tuberculosis screening: No symptoms or risk factors identified. Fall Risk None identified. Assessment: 10:19 General: Appears in no apparent distress. comfortable, Behavior is calm, cooperative, aj appropriate for age. Pain: Complains of pain in right ear and left ear. Neuro: Level of Consciousness is awake, alert, obeys commands, Oriented to person, place, time, situation, Appropriate for age. Respiratory: Airway is patent Respiratory effort is even, unlabored, Respiratory pattern is regular, symmetrical. EENT: Reports nasal congestion nasal discharge pain in left ear and right ear. Derm: Skin is intact, is healthy with good turgor, Skin is pink, warm \T\ dry. normal. Vital Signs: 10:14 BP 120 / 79; Pulse 83; Resp 16; Temp 98.1; Pulse Ox 99% ; Weight 58.97 kg; Height 5 ft. jl7 4 in. (162.56 cm); Pain 2/10; 10:14 Body Mass Index 22.31 (58.97 kg, 162.56 cm) jl7 ED Course: 09:41 Patient arrived in ED. mr 09:41 None, None is Private Physician. mr 10:14 Triage completed. jl7 10:14 Arm band placed on right wrist. jl7 10:17 Latoya Dunn, JODY is Primary Nurse. aj 10:18 Barbie Scott MD is Attending Physician. ma2 10:19 Patient has correct armband on for positive identification. aj 10:31 No provider procedures requiring assistance completed. Patient did not have IV access aj during this emergency room visit. Administered Medications: No medications were administered Outcome: 10:31 Discharged to home ambulatory. aj 10:31 Condition: good 10:31 Discharge instructions given to patient, Instructed on discharge instructions, follow up and referral plans. Demonstrated understanding of follow-up care. 10:47 Discharge ordered by . ma2 10:49 Patient left the ED. aj Signatures: Latoya Dunn, RN Nighat Nunez BecerraBrian RN RN jl7 Alzahri, Mohammad, MD MD ma2
--- NOTE | 2018-09-12 10:48 | EDPHYS ---
Physician Documentation [facility] Name: Juliet Rodgers Age: 43 yrs Sex: Female : 1975 Arrival Date: 09/12/2018 Time: 09:41 Bed 24 Private MD: None, None ED Physician Barbie Scott HPI: 09/12 10:41 This 43 yrs old Female presents to ER via Ambulatory with complaints of Ear ma2 Pain. 10:41 The patient presents with drainage. The complaints affect the right ear. Associated ma2 signs and symptoms: Pertinent positives: ear plugged , Pertinent negatives: cough, fever, lightheadedness, rhinorrhea, sinus trouble, sore throat, vomiting. Severity of symptoms: At their worst the symptoms were mild in the emergency department the symptoms are unchanged. The patient has not experienced similar symptoms in the past. has otitis externa takes cipro po and drops here to follow up on cultures that was done last week.. ear dishcharge is x 10 days improving.. mild, no pain or fever . 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 - Social history:: Smoking status: Patient uses tobacco products, smokes one pack cigarettes per day. - Ebola Screening: : No symptoms or risks identified at this time. - Family history:: not pertinent, pertinent for. - Hospitalizations: : No recent hospitalization is reported. ROS: 10:41 Constitutional: Negative for fever, chills, and weight loss, Eyes: Negative for injury, ma2 pain, redness, and discharge, Neck: Negative for injury, pain, and swelling, : Negative for injury, bleeding, discharge, and swelling. 10:41 ENT: Positive for drainage from ear(s), Negative for injury or acute deformity, ear pain, Gum pain pulling at ears, tinnitus, rhinorrhea. 10:41 All other systems are negative. Exam: 10:41 Constitutional: This is a well developed, well nourished patient who is awake, alert, ma2 and in no acute distress. ENT: Nares patent. No nasal discharge, no septal abnormalities noted. Tympanic membranes are normal and external auditory canals are clear. Oropharynx with no redness, swelling, or masses, exudates, or evidence of obstruction, uvula midline. Mucous membranes moist. Neck: Trachea midline, no thyromegaly or masses palpated, and no cervical lymphadenopathy. Supple, full range of motion without nuchal rigidity, or vertebral point tenderness. No Meningismus. Abdomen/GI: Soft, non-tender, with normal bowel sounds. No distension or tympany. No guarding or rebound. No evidence of tenderness throughout. Skin: Warm, dry with normal turgor. Normal color with no rashes, no lesions, and no evidence of cellulitis. MS/ Extremity: Pulses equal, no cyanosis. Neurovascular intact. Full, normal range of motion. Neuro: Awake and alert, GCS 15, oriented to person, place, time, and situation. Cranial nerves II-XII grossly intact. Motor strength 5/5 in all extremities. Sensory grossly intact. Cerebellar exam normal. Normal gait. Psych: Awake, alert, with orientation to person, place and time. Behavior, mood, and affect are within normal limits. Vital Signs: 10:14 BP 120 / 79; Pulse 83; Resp 16; Temp 98.1; Pulse Ox 99% ; Weight 58.97 kg; Height 5 ft. jl7 4 in. (162.56 cm); Pain 2/10; 10:14 Body Mass Index 22.31 (58.97 kg, 162.56 cm) jl7 MDM: 10:18 Patient medically screened. la2 10:41 Differential diagnosis: otitis externa. Data reviewed: vital signs, nurses notes, ma2 cultures positive for pnsudomonas and sensetive to cipro . Counseling: I had a detailed discussion with the patient and/or guardian regarding: the historical points, exam findings, and any diagnostic results supporting the discharge/admit diagnosis, the presence of at least one elevated blood pressure reading (>120/80) during this emergency department visit. Response to treatment: the patient's symptoms have markedly improved after treatment, the patient's symptoms have resolved after treatment. Administered Medications: No medications were administered Disposition: 09/12/18 10:47 Discharged to Home. Impression: Unspecified chronic otitis externa, bilateral. - Condition is Stable. - Discharge Instructions: Otitis Externa, [id number], Ear Drops, Adult, [id number]. - Medication Reconciliation Form, Thank You Letter, Antibiotic Education, Prescription Opioid Use form. - Follow up: Private Physician; When: Tomorrow; Reason: Continuance of care. Signatures: Latoya Dunn RN RN aj Brian Becerra RN RN jl7 Barbie Scott MD MD ma2 Corrections: (The following items were deleted from the chart) 10:49 10:47 09/12/2018 10:47 Discharged to Home. Impression: Unspecified chronic otitis aj externa, bilateral. Condition is Stable. Forms are Medication Reconciliation Form, Thank You Letter, Antibiotic Education, Prescription Opioid Use. Follow up: Private Physician; When: Tomorrow; Reason: Continuance of care. ma2
== END 2018-09-12 10:49 | disposition home or self-care (01) ==
LOC: ER 09:38
DX: H60.63 Unspecified chronic otitis externa, bilateral (principal); F17.210 Nicotine dependence, cigarettes, uncomplicated
CPT/HCPCS: 99281

== ENCOUNTER 2018-10-05 19:08 | Emergency (ER) | payer SELFPAY ==
[2018-10-05 19:53] LABS: Absolute Lymphocytes (CBC) 1.1 K/uL (0.7-4.9); Absolute Monocytes 0.9 K/uL (0.1-1.3); Absolute Neutrophil 9.1 K/uL (1.8-8.0); Basophils % 0.4 % (0-1.3); Eosinophils % 0.3 % (0-4.4); Hematocrit 41.1 % (36.0-45.0); Lymphocytes % 9.5 % (15.3-44.8); MCH 31.6 pg (27.0-35.0); MCV 93.4 fL (80-100); MPV 10.9 fL (7.6-11.3); Monocytes % 8.3 % (3.3-12.3)
[2018-10-05 19:59] LABS: Protime INR 1.13
[2018-10-05 20:18] LABS: ALT/SGPT 32 U/L (12-78); AST/SGOT 35 U/L (15-37); Albumin 4.5 g/dL (3.4-5.0); Alkaline Phosphatase 64 U/L (45-117); BUN Blood Urea Nitrogen 20 mg/dL (7-18); Bicarbonate 24 mmol/L (21-32); Bilirubin Direct 0.2 mg/dL (0-0.2); Bilirubin Total 0.7 mg/dL (0.2-1.0); Glucose Level 120 mg/dL (74-106); Potassium 3.6 mmol/L (3.5-5.1); Protein, Total 8.2 g/dL (6.4-8.2); Sodium Level 138 mmol/L (136-145)
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
--- NOTE | 2018-10-06 09:24 | EKG ---
Test Date: 2018-10-05 Test Time: 19:32:07 [place]azier Artist: TARCEY MEASUREMENT RESULTS: Intervals: Rate: 109 NC: 138 QRSD: 92 QT: 368 QTc: 495 [place]: P: 62 NC: 138 QRS: 70 T: 14 INTERPRETIVE STATEMENTS: Sinus tachycardia Cannot rule out Anterior infarct, age undetermined Abnormal ECG No previous ECG available for comparison Electronically Signed On 10-06-18 09:23:46 WELL DRILLER by Ziggy Lira
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
== END 2018-10-05 20:36 | disposition left against medical advice (07) ==
LOC: ER 19:08
DX: T68.XXXA Hypothermia, initial encounter (principal); V58.0XXA Driver of pick-up truck or van injured in noncollision transport accident in nontraffic accident, initial encounter; Y93.89 Activity, other specified; Y92.828 Other wilderness area as the place of occurrence of the external cause; F17.210 Nicotine dependence, cigarettes, uncomplicated
CPT/HCPCS: 36415; 80048; 80076; 80320; 80329; 85025; 85610; 85730; 93005; 99285

== ENCOUNTER 2021-01-10 11:00 | Emergency (ER) | payer SELFPAY ==
[2021-01-10 13:26] LABS: Urine Blood NEGATIVE (NEG); Urine Glucose NEGATIVE (NEG); Urine Protein 1+ (NEG)
[2021-01-10 13:33] LABS: ALT/SGPT 40 U/L (12-78); AST/SGOT 19 U/L (15-37); Alkaline Phosphatase 54 U/L (45-117); BUN Blood Urea Nitrogen 33 mg/dL (7-18); Bicarbonate 26 mmol/L (21-32); Bilirubin Direct 0.5 mg/dL (0-0.2); Bilirubin Total 1.7 mg/dL (0.2-1.0); Glucose Level 84 mg/dL (74-106); Magnesium 2.7 mg/dL (1.8-2.4); Potassium 4.9 mmol/L (3.5-5.1); Protein, Total 9.2 g/dL (6.4-8.2); Sodium Level 145 mmol/L (136-145); Troponin (Emerg Dept Use Only) < 0.02 ng/mL (0.0-0.045)
[2021-01-10] MEDS ORDERED: NA CHLORIDE 0.9% 1,000 ML ONE (13:54)
[2021-01-10 14:37] LABS: Absolute Lymphocytes (CBC) 1.5 K/uL (0.7-4.9); Basophils % 0.3 % (0-1.3); Hematocrit 49.1 % (36.0-45.0); Lymphocytes % 20.1 % (15.3-44.8); MPV 11.7 fL (7.6-11.3); RBC Red Blood Cell Count 5.42 M/uL (3.86-4.86)
[2021-01-10 14:39] LABS: Protime INR 1.12
[2021-01-10 14:39] LABS: Barbiturates NEGATIVE (NEGATIVE); Benzodiazepines NEGATIVE (NEGATIVE); Cocaine NEGATIVE (NEGATIVE); METHAMPHETAM NEGATIVE (NEGATIVE); Methadone NEGATIVE (NEGATIVE); Opiates NEGATIVE (NEGATIVE); Phencyclidine NEGATIVE (NEGATIVE); THC Cannibis NEGATIVE (NEGATIVE)
[2021-01-10 15:14] LABS: Urine Bacteria <20 /HPF (<20); Urine RBC <5 /HPF (NONE SEEN)
--- NOTE | 2021-01-10 15:27 | RAD REPORT ---
EXAM DESCRIPTION: US - Abdomen Exam Limited - 01/10/2021 3:19 pm CLINICAL HISTORY: elevated bilirubin COMPARISON: No comparisons FINDINGS: The gallbladder demonstrates extensive sludge and gallstones. No pericholecystic fluid or gallbladder wall thickening. The common bile duct is normal measuring 3 mm. The liver demonstrates no findings of intrahepatic biliary dilatation. IMPRESSION: Extensive gallbladder calculi and sludge.
--- NOTE | 2021-01-10 15:31 | ER ---
Nurse's Notes [facility] Name: Juliet Rodgers Age: 45 yrs Sex: Female : 1975 Arrival Date: 01/10/2021 Time: 11:08 Bed 13 Private MD: Diagnosis: Cholelithiasis;Anorexia Presentation: 01/10 11:11 Chief complaint: Parent and/or Guardian states: Father: she has no appetite. She has ca1 not had any food or water/drink for at least 2 weeks. Coronavirus screen: Client denies travel out of the [place] in the last 14 days. At this time, the client does not indicate any symptoms associated with coronavirus-19. Ebola Screen: Patient negative for fever greater than or equal to 101.5 degrees Fahrenheit, and additional compatible Ebola Virus Disease symptoms Patient denies exposure to infectious person. Patient denies travel to an Ebola-affected area in the 21 days before illness onset. No symptoms or risks identified at this time. Risk Assessment: Do you want to hurt yourself or someone else? Patient reports no desire to harm self or others. Onset of symptoms was January 10, 2021. 11:11 Method Of Arrival: Ambulatory ca1 11:11 Acuity: ELI 2 ca1 16:02 Initial Sepsis Screen: Does the patient meet any 2 criteria? No. Patient's initial zb sepsis screen is negative. Does the patient have a suspected source of infection? No. Patient's initial sepsis screen is negative. 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 - Social history:: Smoking status: Patient denies any tobacco usage or history of. Screenin:34 Abuse screen: Denies threats or abuse. Denies injuries from another. Nutritional zb screening: Had unintentional weight loss of 10 pounds or more. Intervention for positive screen: ED Physician notified. Tuberculosis screening: No symptoms or risk factors identified. Fall Risk None identified. Assessment: 13:00 General: Appears malnourished, Behavior is flat, quiet, Reports fatigue for >3 days. zb Pain: Denies pain. 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 Full function Gait is unsteady, Speech is normal, Facial symmetry appears normal, Pupils are PERRLA, Intact. Cardiovascular: Patient's skin is warm and dry. Respiratory: Airway is patent Respiratory effort is even, unlabored, Respiratory pattern is regular, symmetrical. GI: Abdomen is flat. : No deficits noted. Derm: Skin is fragile, is thin, with poor turgor Skin is dry, Skin is pale. Musculoskeletal: Range of motion: intact in all extremities. 14:00 Reassessment: Patient appears in no apparent distress at this time. Patient and/or zb family updated on plan of care and expected duration. Pain level reassessed. Patient is alert, oriented x 3, equal unlabored respirations, skin warm/dry/pink. 15:00 Reassessment: Patient appears in no apparent distress at this time. Patient and/or zb family updated on plan of care and expected duration. Pain level reassessed. Patient is alert, oriented x 3, equal unlabored respirations, skin warm/dry/pink. no changes at this time. 15:30 Reassessment: d/c pending IV fluid completion. zb 15:59 Reassessment: Patient appears in no apparent distress at this time. Patient and/or zb family updated on plan of care and expected duration. Pain level reassessed. Patient is alert, oriented x 3, equal unlabored respirations, skin warm/dry/pink. d/c instructions given IV fluids completed. Vital Signs: 11:11 BP 126 / 106; Pulse 128; Resp 20 S; Temp 97.3(TE); Pulse Ox 98% on R/A; Height 5 ft. 4 ca1 in. (162.56 cm); Pain 0/10; 14:00 BP 123 / 99; Pulse 102; Resp 18; Pulse Ox 97% on R/A; zb 15:10 BP 114 / 93; Pulse 105; Resp 16; Pulse Ox 96% on R/A; zb 15:37 BP 123 / 91; Pulse 86; Resp 18; Pulse Ox 100% on R/A; zb ED Course: 11:08 Patient arrived in ED. as 11:14 Triage completed. ca1 11:15 Arm band placed on right wrist. ca1 11:23 Seble Holden, RN is Primary Nurse. iw 11:29 Monroe Ayon PA is PHCP. cp 11:32 Monroe Ayon PA is PHCP. cp 11:32 Monroe Lake MD is Attending Physician. cp 12:22 Inserted saline lock: 20 gauge in right antecubital area, using aseptic technique. 4 13:04 Primary Nurse role handed off by Seble Holden RN 13:13 Joselin Mancuso RN is Primary Nurse. zb 15:19 US Abdomen Limited In Process Unspecified. EDMS 15:30 Terrence Sales MD is Referral Physician. cp 16:02 Patient has correct armband on for positive identification. youth nutritional monitor on. Pulse zb ox on. Door closed. Noise minimized. Warm blanket given. 16:02 No provider procedures requiring assistance completed. IV discontinued, intact, zb bleeding controlled, No redness/swelling at site. Pressure dressing applied. Administered Medications: 13:41 Drug: NS 0.9% 1000 ml Route: IV; Rate: 1 bolus; Site: right antecubital; zb 16:03 Follow up: Response: No adverse reaction; Marked relief of symptoms; IV Status: zb Completed infusion; IV Intake: 1000ml Intake: 16:03 IV: 1000ml; Total: 1000ml. zb Outcome: 15:31 Discharge ordered by . cp 16:02 Discharged to home ambulatory. zb 16:02 Condition: stable 16:02 Discharge instructions given to patient, Instructed on discharge instructions, follow up and referral plans. medication usage, Demonstrated understanding of instructions, follow-up care, medications, Prescriptions given X 1. 16:11 Patient left the ED. zb Signatures: Dispatcher [employer] EDNY Cynthia Peng as Seble Holden RN RN Monroe Ayon PA PA cp Carolyn Goode Annette Petit RN RN [facility] Mick Rebolledo [facility] Joselin Mancuso RN RN zollie
--- NOTE | 2021-01-10 15:31 | EDPHYS ---
Physician Documentation [facility] Name: Juliet Rodgers Age: 45 yrs Sex: Female : 1975 Arrival Date: 01/10/2021 Time: 11:08 Bed 13 Private MD: ED Physician Monroe Lake HPI: 01/10 11:43 This 45 yrs old Female presents to ER via Ambulatory with complaints of cp Weakness, Decreased Appetite. 11:43 The patient presents to the emergency department with weakness of the entire body, cp generalized weakness, that is moderate. 11:43 Onset: The symptoms/episode began/occurred 3 week(s) ago. Associated signs and cp symptoms: Pertinent negatives: altered mental status, fever. Patient's baseline: Neuro: alert and fully oriented, Motor: no deficits, Ambulation: walks without assistance, Speech: normal. Current symptoms: general weakness. 11:43 Patient reports decreasing appetite with approximately 20 lb weight loss over past 2-3 cp weeks. Patient denies abdomen and/or chest pain, denies early satiety and reports she just hasn't wanted to eat. Patient reports recent job loss but denies depression and/or suicidal thoughts. Comes to ED for evaluation of general weakness. 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 - Social history:: Smoking status: Patient denies any tobacco usage or history of. ROS: 11:50 Constitutional: Positive for poor PO intake, weight loss, Negative for body aches, cp chills, fever. 11:50 Eyes: Negative for injury, pain, redness, and discharge. cp 11:50 ENT: Negative for ear pain, sore throat, difficulty swallowing, difficulty handling secretions. 11:50 Cardiovascular: Negative for chest pain. 11:50 Respiratory: Negative for cough, shortness of breath, wheezing. 11:50 Abdomen/GI: Positive for decreased appetite, Negative for abdominal pain, vomiting, diarrhea, constipation. 11:50 Back: Negative for pain at rest, pain with movement, radiated pain. 11:50 Skin: Negative for rash. 11:50 Neuro: Negative for altered mental status, headache, weakness. 11:50 All other systems are negative. Exam: 11:55 Constitutional: The patient appears in no acute distress, alert, awake, non-toxic, well cp developed. 11:55 Head/Face: Normocephalic, atraumatic. cp 11:55 Eyes: Periorbital structures: appear normal, Conjunctiva: normal, no exudate, no injection, Sclera: no appreciated abnormality, Lids and lashes: appear normal, bilaterally. 11:55 ENT: External ear(s): are unremarkable, Nose: is normal, Mouth: Lips: dry, Oral mucosa: moist, Posterior pharynx: Airway: no evidence of obstruction, patent. 11:55 Neck: ROM/movement: is normal, is supple, without pain, no range of motions limitations. 11:55 Chest/axilla: Inspection: normal, Palpation: is normal, no crepitus, no tenderness. 11:55 Cardiovascular: Rate: tachycardic, Rhythm: regular, Edema: is not appreciated, JVD: is not appreciated. 11:55 Respiratory: the patient does not display signs of respiratory distress, Respirations: normal, no use of accessory muscles, no retractions, labored breathing, is not present, Breath sounds: are clear throughout, no decreased breath sounds, no stridor, no wheezing. 11:55 Abdomen/GI: Inspection: abdomen appears normal, Palpation: abdomen is soft and non-tender, in all quadrants. 11:55 Back: pain, is absent, ROM is normal. 11:55 Neuro: Orientation: to person, place \T\ time. Mentation: is normal, Cerebellar function: is grossly normal, Motor: moves all fours, strength is normal, Sensation: is normal. 13:50 ECG was reviewed by the Attending Physician. cp Vital Signs: 11:11 BP 126 / 106; Pulse 128; Resp 20 S; Temp 97.3(TE); Pulse Ox 98% on R/A; Height 5 ft. 4 ca1 in. (162.56 cm); Pain 0/10; 14:00 BP 123 / 99; Pulse 102; Resp 18; Pulse Ox 97% on R/A; zb 15:10 BP 114 / 93; Pulse 105; Resp 16; Pulse Ox 96% on R/A; zb 15:37 BP 123 / 91; Pulse 86; Resp 18; Pulse Ox 100% on R/A; zb MDM: 11:40 Patient medically screened. cp 15:30 Data reviewed: vital signs, nurses notes, lab test result(s), EKG. 15:30 Test interpretation: by ED physician or midlevel provider: ECG. Counseling: I had a cp detailed discussion with the patient and/or guardian regarding: the historical points, exam findings, and any diagnostic results supporting the discharge/admit diagnosis, lab results, to return to the emergency department if symptoms worsen or persist or if there are any questions or concerns that arise at home. Response to treatment: the patient's symptoms have mildly improved after treatment, patient is well hydrated. and as a result, I will discharge patient. ED course: VSS. Discussed results of labs. Patient continues to deny any depression and/or thoughts to harm self at this time. Patient tolerating po fluids. Will discharge to home for continued monitoring. 01/10 11:43 Order name: Basic Metabolic Panel; Complete Time: 14:03 01/10 14:04 Interpretation: Normal except: CL 110; BUN 33; GFR 74; CA 10.4. cp 01/10 11:43 Order name: CBC with Diff; Complete Time: 14:56 cp 01/10 14:56 Interpretation: Normal except: RBC 5.42; HGB 16.7; HCT 49.1; MPV 11.7. cp 01/10 11:43 Order name: LFT's; Complete Time: 14:03 cp 01/10 14:09 Interpretation: Normal except: BILIT 1.7; BILID 0.5; TP 9.2; GLOB 4.2. cp 01/10 11:43 Order name: Magnesium; Complete Time: 14:03 cp 01/10 15:20 Interpretation: Abnormal: MG 2.7. cp 01/10 11:43 Order name: PT-INR; Complete Time: 14:56 cp 01/10 11:43 Order name: Troponin (emerg Dept Use Only); Complete Time: 14:03 cp 01/10 11:43 Order name: Urine Microscopic Only; Complete Time: 15:17 cp 01/10 11:43 Order name: UDS; Complete Time: 14:56 cp 01/10 13:07 Order name: Urine Dipstick--Ancillary (enter results) eb 01/10 13:07 Order name: Urine --Ancillary (enter results) eb 01/10 13:08 Order name: Urine Dipstick-Ancillary; Complete Time: 14:03 EDMS 01/10 13:08 Order name: Urine --Ancillary; Complete Time: 14:03 EDMS 01/10 14:05 Order name: US Abdomen Limited; Complete Time: 15:29 cp 01/10 15:29 Interpretation: Report reviewed. cp 01/10 11:43 Order name: EKG; Complete Time: 11:43 cp 01/10 11:43 Order name: Cardiac monitoring; Complete Time: 13:41 cp 01/10 11:43 Order name: EKG - Nurse/Tech; Complete Time: 13:41 cp 01/10 11:43 Order name: IV Saline Lock; Complete Time: 12:23 cp 01/10 11:43 Order name: Labs collected and sent; Complete Time: 12:23 cp 01/10 11:43 Order name: O2 Per Protocol; Complete Time: 12:23 cp 01/10 11:43 Order name: O2 Sat Monitoring; Complete Time: 12:23 cp 01/10 11:43 Order name: Urine Dipstick-Ancillary (obtain specimen); Complete Time: 13:34 cp 01/10 13:16 Order name: Labs - recollect needed: recollect lavender and blue/ both tubes eb underfilled; Complete Time: 16:03 01/10 15:11 Order name: PO challenge; Complete Time: 15:54 cp EC:50 Rate is 91 beats/min. Rhythm is regular. [place] interval is normal. QRS interval is normal. cp QT interval is prolonged at 414 msec. Interpreted by me. Reviewed by me. Administered Medications: 13:41 Drug: NS 0.9% 1000 ml Route: IV; Rate: 1 bolus; Site: right antecubital; zb 16:03 Follow up: Response: No adverse reaction; Marked relief of symptoms; IV Status: zb Completed infusion; IV Intake: 1000ml Disposition: 01/11 01:22 Co-signature as Attending Physician, Monroe Lake MD I agree with the assessment and alfonzo plan of care. Disposition: 01/10/21 15:31 Discharged to Home. Impression: Cholelithiasis, Anorexia. - Condition is Stable. - Discharge Instructions: Cholelithiasis, Malnutrition. - Prescriptions for Zofran 4 mg Oral Tablet - take 1 tablet by ORAL route every 12 hours As needed; 20 tablet. - Medication Reconciliation Form, Thank You Letter, Antibiotic Education, Prescription Opioid Use form. - Follow up: Terrence Sales MD; When: 1 - 2 days; Reason: gallstones. - Problem is new. - Symptoms have improved. Signatures: Dispatcher [employer] EDMonroe Stevens MD MD cha Page, Corey, PA PA cp Carolyn Goode Cheryl, RN RN ca1 Brown, Zipporah, RN RN zb Corrections: (The following items were deleted from the chart) 01/10 14:04 14:03 Normal except: CL 110; BUN 33; GFR 74. cp cp 16:11 15:31 01/10/2021 15:31 Discharged to Home. Impression: Cholelithiasis; Anorexia. zb Condition is Stable. Forms are Medication Reconciliation Form, Thank You Letter, Antibiotic Education, Prescription Opioid Use. Follow up: Dr. Terrence Sales; When: 1 - 2 days; Reason: gallstones. Problem is new. Symptoms have improved. cp
[2021-01-10 16:19] VITALS: TEMP 97.3
[2021-01-10 16:23] VITALS: BP 123/91; O2SAT 100
== END 2021-01-10 16:11 | disposition home or self-care (01) ==
LOC: ER 11:00
DX: K80.20 Calculus of gallbladder without cholecystitis without obstruction (principal); R63.0 Anorexia
CPT/HCPCS: 36415; 76705; 80048; 80076; 80307; 81003; 81015; 81025; 83735; 84484; 85025; 85610; 93005; 96360; 96361; 99284; J7030